=== PATIENT | male | born 1980 | race Caucasian/White ===

== ENCOUNTER → 2020-09-25 12:48 | Outpatient (BNVA) | payer OTHER, SELFPAY | PROVIDERS: Visit Provider Physician Assistant Medical | DX: S89.92XA Unspecified injury of left lower leg, initial encounter (principal); W11.XXXA Fall on and from ladder, initial encounter | CPT/HCPCS: 73564; 99203 ==

== ENCOUNTER → 2020-09-30 13:01 | Outpatient (BNVA) | payer OTHER, SELFPAY | PROVIDERS: Visit Provider Physician Assistant | DX: M25.552 Pain in left hip (principal); M25.462 Effusion, left knee | CPT/HCPCS: 73502; 99214 ==

== ENCOUNTER → 2020-10-03 13:05 | Outpatient (BNVA) | payer OTHER, SELFPAY | PROVIDERS: Visit Provider Physician Assistant Medical | DX: M25.462 Effusion, left knee (principal); M25.552 Pain in left hip; M79.662 Pain in left lower leg; Z91.81 History of falling | CPT/HCPCS: 99213 ==

== ENCOUNTER → 2020-10-24 12:53 | Outpatient (BNVA) | payer OTHER, SELFPAY | PROVIDERS: Visit Provider Physician Assistant Medical | DX: S89.92XD Unspecified injury of left lower leg, subsequent encounter (principal); S79.912D Unspecified injury of left hip, subsequent encounter; X58.XXXD Exposure to other specified factors, subsequent encounter | CPT/HCPCS: 99213 ==